=== PATIENT | female | born 2000 | race Caucasian/White ===

== ENCOUNTER 2022-07-17 17:20 | Emergency (ER) | payer BC, SELFPAY ==
[2022-07-17 17:29] VITALS: BP 107/78; PULSE 77; RESP 16; TEMP 36.8; O2SAT 100
--- NOTE | 2022-07-17 18:02 | ED.URI ---
HPI - URI/Sore Throat General Chief Complaint: Upper Respiratory Infection Stated Complaint: throat/ears/cough Source: patient and RN notes reviewed History of Present Illness HPI Narrative: 21-year-old male presents to urgent care with complaints of congestion, sore throat, bilateral ear pain, cough and sinus pressure. Patient states she has had these symptoms for the last week. Patient states she is unable to breathe through her nose and her mouth just irritates her throat pain more. Patient denies any fevers, chills, vomiting, diarrhea, chest pain, or shortness of breath. Patient has been taking NyQuil at home without relief. Some parts of this dictation were generated by voice recognition software and may contain typographical and/or grammatical inaccuracies. Related Data Home Medications Medication Instructions Recorded Confirmed cholecalciferol (vitamin D3) 25 25 mcg PO DAILY 01/31/22 05/30/22 mcg (1,000 unit) capsule Allergies Allergy/AdvReac Type Severity Reaction Status Date / Time No Known Allergies Allergy Verified 05/30/22 11:59 Review of Systems Review of Systems: Pertinent positives and pertinent negatives per HPI. PMFSH Past Medical History Medical History BMI 22.0-22.9, adult Family History Family History Father No problems noted. Mother Thyroid activity decreased Sibling No problems noted. Social History Social History Smoking status: Never smoker Second hand tobacco smoke exposure: No Alcohol intake: current Substance use: current Substance use type: marijuana Living arrangements: with family Occupation/Education: unemployed Gender identity (if verbalized by the patient): Female Comments At the time of my signature, I reviewed and agree with the nursing past medical, surgical, social, and family history. There is no relevant family history pertinent to the patient complaint. Exam Narrative: GENERAL: This is a well-nourished, well-developed patient, in no apparent distress. HEAD: normocephalic, atraumatic. EYES: Sclera clear/white. Vision is grossly intact. EARS: External ears normal, auditory canals clear and without drainage, TMs normal without perforation. Hearing grossly intact. NOSE: External nose normal with no obvious nasal discharge, nares without redness, no rhinorrhea. THROAT: Mucous membranes moist, posterior pharynx clear. NECK: Neck supple, non-tender without lymphadenopathy, masses or thyromegaly. CARDIOVASCULAR: Regular rate and rhythm without murmurs, gallops, or rubs. RESPIRATORY: Clear to auscultation. Breath sounds equal bilaterally. No wheezes, rales, or rhonchi. SKIN: warm, intact with no suspicious lesions or rash, good texture and turgor. NEURO: awake, alert, and oriented to person, place and time. There were no obvious focal neurologic abnormalities. Course Course Level of Care: Express Care Visit Vital Signs Vital signs: Vital Signs Temperature 98.2 F 07/17/22 17:29 Pulse Rate 77 07/17/22 17:29 Respiratory Rate 16 07/17/22 17:29 Blood Pressure 107/78 07/17/22 17:29 Pulse Oximetry 100 07/17/22 17:29 Oxygen Delivery Room Air 07/17/22 17:29 Temperature 98.2 F 07/17/22 17:29 Pulse Rate 77 07/17/22 17:29 Respiratory Rate 16 07/17/22 17:29 Blood Pressure 107/78 07/17/22 17:29 Pulse Oximetry 100 07/17/22 17:29 Oxygen Delivery Room Air 07/17/22 17:29 Reviewed MDM - URI/Sore Throat MDM Narrative Medical decision making narrative: Go to the ER for any new or worsening symptoms. Avoid smoking/second-hand smoke. Continue to take Tylenol or Motrin for pain. Increase your Vitamin C intake. Use a humidifier or vaporizer at night. Take Medications as prescribed. Drink plenty of water. 8-10 glasses per day. Use flonase 2 time
== END 2022-07-17 18:07 | disposition home or self-care (01) ==
PROVIDERS: Emergency Provider Nurse Practitioner Family; PCP Physician Assistant Medical
DX: J32.9 Chronic sinusitis, unspecified (principal); F12.90 Cannabis use, unspecified, uncomplicated
CPT/HCPCS: 87081; 87880; 99213; G0463